=== PATIENT | male | born 1985 ===

== ENCOUNTER 2020-11-13 11:10 | Outpatient (CLI) | payer OTHER ==
--- NOTE | 2020-11-13 11:57 | RAD ---
EXAM: Two views chest PROVIDED CLINICAL HISTORY: Cough, fever, and shortness of breath. COMPARISON: 12/12/2014 FINDINGS: Cardiac silhouette and pulmonary vasculature are within normal limits. Mild nonspecific increased in terstitial densities are seen overlying the right perihilar region. No consolidation is seen. There is suggestion of minimal bilateral pleural effusions with blunting of the posterior costophrenic angl es bilaterally. No other interval change. IMPRESSION: 1. Minimal bilateral pleural effusions. 2. Nonspecific mild prominence of right perihilar interstitial densities without consolidation seen. If the patient's symptoms persist, follow-up imaging is advised..
== END 2020-11-13 11:11 | disposition home or self-care (01) ==
LOC: SCSRAD 11:10
PROVIDERS: ATTEND Family Medicine
DX: R06.02 Shortness of breath (principal); R05 Cough; R50.9 Fever, unspecified; J90 Pleural effusion, not elsewhere classified; J98.4 Other disorders of lung
CPT/HCPCS: 71046

== ENCOUNTER 2024-12-29 08:22 | Emergency (ER) | payer BC ==
[2024-12-29] MEDS ORDERED: Acetaminophen 500 MG TAB ONE (09:08)
[2024-12-29] MEDS ORDERED: Aspirin Chewable 81 MG TAB ONE (09:09)
[2024-12-29 09:48] LABS: #Basophils 0.04 10x3/uL (0.0-0.2); %Basophils 0.5 % (0.0-1.0); %Eosinophils 1.2 % (0.0-10.0); %Lymphocytes 18.9 % (21.0-51.0); %Neutrophils 72.9 % (42.0-75.0); Hematocrit 46.9 % (42.0-52.0); Hemoglobin 15.8 g/dL (14.0-18.0); Mean Corpuscular HGB CONC 33.7 g/dL (32.0-36.0); Mean Corpuscular Hemoglobin 31.3 pg (27.0-31.0); Mean Corpuscular Volume 92.9 fL (78.0-98.0); Mean Platelet Volume 10.1 fL (7.4-10.4); Platelet Count 269 10x3/uL (130-400); RBC Distribution Width 12.2 % (11.5-14.5); Red Blood Cell (RBC) Count 5.05 mill/uL (4.70-6.10)
[2024-12-29 10:40] LABS: ALT (SGPT) 35 U/L (Less than 45); AST (SGOT) 31 U/L (11-34); Albumin 4.5 g/dL (3.1-4.5); Alkaline Phosphatase 48 U/L (40-110); Anion Gap 11 mmol/L (10-20); BUN (Urea Nitrogen) 16 mg/dL (8.9-20.6); Bilirubin, Total 0.5 mg/dL (0.3-1.2); Calc. Creatinine Clearance 0 mL/min (70-130); Calcium 9.3 mg/dL (7.8-10.44); Carbon Dioxide 28 mmol/L (22-29); Chloride 105 mmol/L (98-107); Estimated GFR 106; Globulin 3.1 g/dL (2.4-3.5); Glucose 93 mg/dL (70-105); Lipase 18 U/L (8-78); Potassium 4.3 mmol/L (3.5-5.1); Protein, Total 7.6 g/dL (6.0-8.3); Sodium 140 mmol/L (136-145)
[2024-12-29 10:44] LABS: Troponin I Less than 0.010 ng/mL (< 0.028)
[2024-12-29 10:46] LABS: Bacteria/HPF None Seen HPF (None Seen); Bilirubin Negative (Negative); Blood, Urine Negative (Negative); CAUTI Indications for Culture Fever or rigors; Clarity Clear (Clear); Glucose, Urine (Dipstick) Normal (Negative); Ketone, Urine Negative (Negative); Leukocyte Negative Leu/uL (Negative); Nitrite Negative (Negative); Protein, Urine (Dipstick) Negative (Neg-Trace); RBC/HPF 0-3 HPF (0-3); Specific Gravity, Urine 1.018 (1.002-1.036); Squamous Epithelial None Seen HPF (0-3); Urobilinogen Normal mg/dL (Less than 2); WBC/HPF 0-3 HPF (0-3)
[2024-12-29 11:00] LABS: Urine Culture Reflex No No
== END 2024-12-29 11:23 | disposition home or self-care (01) ==
LOC: ERS 08:22
DX: R07.89 Other chest pain (principal); I10 Essential (primary) hypertension; E78.5 Hyperlipidemia, unspecified; G47.30 Sleep apnea, unspecified; X50.0XXA Overexertion from strenuous movement or load, initial encounter; Y93.F2 Activity, caregiving, lifting; Y92.69 Other specified industrial and construction area as the place of occurrence of the external cause; Z55.6 Problems related to health literacy; Z75.3 Unavailability and inaccessibility of health-care facilities; Z79.899 Other long term (current) drug therapy
CPT/HCPCS: 71045; 80053; 81001; 83690; 84484; 85025; 85379; 93005